=== PATIENT | male | born 1945 | race Caucasian/White ===

== ENCOUNTER 2025-06-29 05:54 | Emergency (ER) | payer MEDICARE, OTHER ==
[~2025-06-29] VITALS: Ht 182.9 cm; Wt 85.4 kg
[2025-06-29] MEDS ORDERED: CLOP75TA2 PO (06:02)
[2025-06-29] MEDS ORDERED: B-12100010 PO (07:34)
[2025-06-29] MEDS ORDERED: FERR325T3 PO (07:34)
[2025-06-29] MEDS ORDERED: LOSA50TA28 PO (07:34)
[2025-06-29] MEDS ORDERED: HYDR50TA46 PO (07:34)
[2025-06-29] MEDS ORDERED: D 50CAP3 PO (07:34)
[2025-06-29] MEDS ORDERED: AMLO-751 PO (07:34)
[2025-06-29] MEDS ORDERED: ROSU20TA86 PO (07:34)
[2025-06-29] MEDS ORDERED: TRIA1OI TOP (07:34)
[2025-06-29] MEDS ORDERED: ASPI81CH33 PO (07:34)
[2025-06-29] MEDS ORDERED: HYDR25TA87 PO (07:34)
[2025-06-29] MEDS ORDERED: HOME MED LIST COMPLETE! XX SCH (07:35)
[2025-06-29 07:36] LABS: BASO # 0.0 10^3/uL (0.0-0.2); BASO % 0.4 % (0.0-1.0); EOS # 0.1 10^3/uL (0.0-0.5); EOS % 2.2 % (0.0-3.0); LYMPH # 1.0 10^3/uL (1.5-5.0); LYMPH % 17.9 % (24.0-44.0); MONO # 0.7 10^3/uL (0.0-0.8); MONO % 11.9 % (2.0-8.0); NEUTROPHILS # 3.7 10^3/uL (1.5-8.5); NEUTROPHILS % 67.4 % (36.0-66.0); PLATELET COUNT, AUTOMATED 182 10^3/uL (150-450)
[2025-06-29 08:00] LABS: ALT/SGPT 19.0 U/L (7.0-40); AST/SGOT 19.0 U/L (<34); CALCIUM LEVEL 8.9 MG/DL (8.3-10.6); CARBON DIOXIDE LEVEL 23.0 MMOL/L (20-31); CHLORIDE LEVEL 105.0 MMOL/L (98-107); CREATININE FOR GFR 1.36 MG/DL (0.70-1.30); GLOMERULAR FILTRATION RATE 52.3 (>35); POTASSIUM SERUM 4.4 MMOL/L (3.5-5.1); SODIUM LEVEL 141.0 MMOL/L (136-145)
[2025-06-29 10:16] VITALS: BP 166/75; TEMP 95.7; O2SAT 98
== END 2025-06-29 10:20 | disposition home or self-care (01) ==
LOC: M ED 05:54
DX: K40.90 Unilateral inguinal hernia, without obstruction or gangrene, not specified as recurrent (principal); C61 Malignant neoplasm of prostate; I10 Essential (primary) hypertension; N18.9 Chronic kidney disease, unspecified; Z87.891 Personal history of nicotine dependence; Z79.82 Long term (current) use of aspirin; Z79.899 Other long term (current) drug therapy